=== PATIENT | female | born 1995 | race Caucasian/White ===

== ENCOUNTER 2017-05-23 13:17 | Emergency (ER) | payer OTHER ==
[~2017-05-23] VITALS: Wt 97.1 kg
[~2017-05-23 13:17] MED LIST: AMOXIL500 MG PO; MOTRIN800 MG PO; PRENATAL1 TA7 PO
== END 2017-05-23 14:22 | disposition home or self-care (01) ==
LOC: ED 13:17
DX: H60.93 Unspecified otitis externa, bilateral (principal); F17.200 Nicotine dependence, unspecified, uncomplicated; Z79.899 Other long term (current) drug therapy

== ENCOUNTER → 2018-08-03 | Outpatient (CLI) | payer OTHER | END | disposition home or self-care (01) | LOC: LAB 10:11 | DX: Z34.81 Encounter for supervision of other normal pregnancy, first trimester (principal); Z3A.12 12 weeks gestation of pregnancy ==

== ENCOUNTER → 2018-12-01 | Outpatient (CLI) | payer OTHER | END | disposition home or self-care (01) | LOC: US 14:00 | DX: Z34.93 Encounter for supervision of normal pregnancy, unspecified, third trimester (principal); Z3A.31 31 weeks gestation of pregnancy ==

== ENCOUNTER 2019-06-23 06:58 | Emergency (ER) | payer OTHER ==
[~2019-06-23] VITALS: Ht 160 cm; Wt 90.7 kg
[2019-06-23] MEDS ORDERED: AMOXICILLIN500 M2 PO (07:29)
[2019-06-23] MEDS ORDERED: CLINDAMYCIN HC300 MG PO (07:29)
[2019-06-23] MEDS ORDERED: Motrin,Rufen800 MG PO (07:30)
== END 2019-06-23 07:29 | disposition home or self-care (01) ==
LOC: ED 06:58
DX: K08.89 Other specified disorders of teeth and supporting structures (principal); Z79.899 Other long term (current) drug therapy

== ENCOUNTER 2021-11-04 14:32 | Inpatient (IN) | payer OTHER ==
[~2021-11-04] VITALS: Ht 160 cm; Wt 102.0 kg
[~2021-11-04 14:32] MED LIST changes: +AMOXICILLIN500 M2 PO; +CLINDAMYCIN HC300 MG PO; +Motrin,Rufen800 MG PO
[2021-11-04 14:57] VITALS: BP 135/73
[2021-11-04 15:25] LABS: BASO # 0.1 10*3/uL (0.0-0.1); BASO % 0.3 % (0.0-1.0); EOS % 0.1 % (1.0-4.0); HEMATOCRIT 44.2 % (37.0-47.0); LYMPH # 2.2 10*3/uL (1.3-4.4); LYMPH % 10.8 % (27.0-41.0); MEAN CELL VOLUME 95.9 fl (81.0-99.0); MEAN CORPUSCULAR HGB 31.7 pg (27.0-31.0); MEAN PLATELET VOLUME 9.2 fl (9.6-12.3); MONO # 0.5 10*3/uL (0.1-1.0); MONO % 2.6 % (3.0-9.0); NEUT # 17.5 10*3/uL (2.3-7.9); NEUT % 85.6 % (47.0-73.0); PLATELET COUNT AUTOMATED 322 10*3/uL (130-400); RED BLOOD COUNT 4.61 10*6/uL (4.10-5.10); RED CELL DISTRI WIDTH 12.6 % (0-14.5); WHITE BLOOD COUNT 20.4 10*3/uL (4.8-10.8)
[2021-11-04 15:47] LABS: ALBUMIN 4.3 gm/dl (3.1-4.5); ALKALINE PHOSPHATASE 90 U/L (45-117); BUN 9 mg/dl (7-24); CHLORIDE 107 mmol/L (98-107); CREATININE 0.77 mg/dL (0.55-1.02); LIPASE 67 U/L (73-393); POTASSIUM 3.9 mmol/L (3.5-5.1); SGOT/AST 21 IU/L (3-35); SGPT/ALT 69 U/L (12-78); SODIUM 136 mmol/L (136-145); TOTAL PROTEIN 8.2 gm/dL (6.4-8.2)
[2021-11-04 16:30] LABS: BILIRUBIN Negative (Negative); BLOOD Negative (Negative); CLARITY Turbid (Clear); COLOR Yellow (Yellow); GLUCOSE Negative (Negative); KETONE Negative (Negative); LEUKO ESTERASE Negative (Negative); NITRITE Negative (Negative); SPECIFIC GRAVITY >= 1.030 (1.001-1.030)
[2021-11-04 16:46] LABS: BACTERIA 4+; RBC 0-2 rbc/hpf (0-2)
[2021-11-04 16:47] LABS: EPITHELIAL CELLS 0-2; WBC 0-2 wbc/hpf (0-5)
[2021-11-04 21:15] VITALS: BP 118/59
[2021-11-05] VITALS: BP 119/65
[2021-11-05 02:40] VITALS: BP 137/82
[2021-11-05 06:20] LABS: BASO % 0.3 % (0.0-1.0); EOS # 0.3 10*3/uL (0.0-0.4); EOS % 2.1 % (1.0-4.0); HEMATOCRIT 41.4 % (37.0-47.0); LYMPH # 4.2 10*3/uL (1.3-4.4); LYMPH % 26.6 % (27.0-41.0); MEAN CELL VOLUME 96.5 fl (81.0-99.0); MEAN CORPUSCULAR HGB 31.7 pg (27.0-31.0); MEAN CORPUSCULAR HGB CONC 32.9 g/dl (33.0-37.0); MEAN PLATELET VOLUME 9.6 fl (9.6-12.3); MONO # 0.8 10*3/uL (0.1-1.0); MONO % 4.8 % (3.0-9.0); NEUT # 10.5 10*3/uL (2.3-7.9); NEUT % 65.7 % (47.0-73.0); PLATELET COUNT AUTOMATED 288 10*3/uL (130-400); RED BLOOD COUNT 4.29 10*6/uL (4.10-5.10); RED CELL DISTRI WIDTH 12.9 % (0-14.5)
[2021-11-05 06:31] LABS: CHLORIDE 107 mmol/L (98-107); POTASSIUM 3.2 mmol/L (3.5-5.1); SODIUM 137 mmol/L (136-145)
[2021-11-05 06:46] LABS: ALBUMIN 3.5 gm/dl (3.1-4.5); ALKALINE PHOSPHATASE 79 U/L (45-117); BUN 9 mg/dl (7-24); CHOLESTEROL 108 mg/dL (<200); CREATININE 0.81 mg/dL (0.55-1.02); FREE T4 0.86 ng/dl (0.76-1.46); LDL CHOLESTEROL 48 mg/dL (9-159); SGOT/AST 17 IU/L (3-35); SGPT/ALT 51 U/L (12-78); THYROID STIM HORMONE (HS) 0.744 uIU/ml (0.358-4.75); TOTAL PROTEIN 7.1 gm/dL (6.4-8.2); TRIGLYCERIDES 146 mg/dl (<150)
[2021-11-05 08:00] VITALS: BP 119/66
[2021-11-05 12:02] VITALS: BP 125/64
[2021-11-05 16:00] VITALS: BP 139/78
[2021-11-05 20:00] VITALS: BP 111/55
[2021-11-06] VITALS (8 sets, daily range): BP systolic 104–147; BP diastolic 58–84
[2021-11-06 06:23] LABS: BASO # 0.1 10*3/uL (0.0-0.1); BASO % 0.5 % (0.0-1.0); EOS # 0.6 10*3/uL (0.0-0.4); EOS % 5.8 % (1.0-4.0); HEMATOCRIT 38.5 % (37.0-47.0); LYMPH # 3.9 10*3/uL (1.3-4.4); LYMPH % 37.6 % (27.0-41.0); MEAN CORPUSCULAR HGB 31.6 pg (27.0-31.0); MEAN CORPUSCULAR HGB CONC 32.2 g/dl (33.0-37.0); MEAN PLATELET VOLUME 9.6 fl (9.6-12.3); MONO # 0.5 10*3/uL (0.1-1.0); NEUT # 5.2 10*3/uL (2.3-7.9); NEUT % 50.5 % (47.0-73.0); PLATELET COUNT AUTOMATED 248 10*3/uL (130-400); RED BLOOD COUNT 3.93 10*6/uL (4.10-5.10); RED CELL DISTRI WIDTH 12.8 % (0-14.5); WHITE BLOOD COUNT 10.3 10*3/uL (4.8-10.8)
[2021-11-06 06:26] LABS: BUN 12 mg/dl (7-24); CHLORIDE 111 mmol/L (98-107); POTASSIUM 3.7 mmol/L (3.5-5.1); SODIUM 139 mmol/L (136-145)
[2021-11-06 06:29] LABS: CREATININE 0.71 mg/dL (0.55-1.02)
[2021-11-06] MEDS ORDERED: AUGMENTIN 875875 MG PO (12:15)
[2021-11-06] MEDS ORDERED: COL-RITE100 M1 PO (12:15)
[2021-11-06] MEDS ORDERED: ZOFRAN4 MG PO (12:15)
== END 2021-11-06 15:00 | disposition home or self-care (01) | DRG 263 ==
LOC: ED 14:32 → 4E 18:19 → EDHOLD 18:19 → 4E 20:03
PROVIDERS: Internal Medicine; Nurse Practitioner Family; ADMIT Student in an Organized Health Care Education/Training Program; ATTEND Student in an Organized Health Care Education/Training Program
PROC: 0FT44ZZ Resection of Gallbladder, Percutaneous Endoscopic Approach (ICD-10-PCS; principal; 2021-11-06)
PROC: 3E0T3BZ Introduction of Anesthetic Agent into Peripheral Nerves and Plexi, Percutaneous Approach (ICD-10-PCS; 2021-11-06)
PROC: 3E0T33Z Introduction of Anti-inflammatory into Peripheral Nerves and Plexi, Percutaneous Approach (ICD-10-PCS; 2021-11-06)
DX: K80.00 Calculus of gallbladder with acute cholecystitis without obstruction (principal); K76.0 Fatty (change of) liver, not elsewhere classified; K42.0 Umbilical hernia with obstruction, without gangrene; K20.90 Esophagitis, unspecified without bleeding; E66.9 Obesity, unspecified; Z20.822 Contact with and (suspected) exposure to COVID-19; R73.9 Hyperglycemia, unspecified; R16.2 Hepatomegaly with splenomegaly, not elsewhere classified; F17.210 Nicotine dependence, cigarettes, uncomplicated; Z71.6 Tobacco abuse counseling; Z82.49 Family history of ischemic heart disease and other diseases of the circulatory system; Z83.3 Family history of diabetes mellitus; Z68.39 Body mass index [BMI] 39.0-39.9, adult

== ENCOUNTER 2022-03-30 16:23 | Emergency (ER) | payer OTHER ==
[~2022-03-30] VITALS: Wt 99.8 kg
[~2022-03-30 16:23] MED LIST changes: +AUGMENTIN 875875 MG PO; +COL-RITE100 M1 PO; +ZOFRAN4 MG PO
[2022-03-30] MEDS ORDERED: AMOXICILLIN500 M2 PO (17:33)
== END 2022-03-30 17:22 | disposition home or self-care (01) ==
LOC: ED 16:23
DX: H66.91 Otitis media, unspecified, right ear (principal); F17.210 Nicotine dependence, cigarettes, uncomplicated

== ENCOUNTER 2024-01-18 17:29 | Emergency (ER) | payer OTHER ==
[~2024-01-18] VITALS: Ht 160 cm; Wt 102.5 kg
[2024-01-18 18:24] LABS: BASO % 0.4 % (0.0-1.0); EOS # 0.5 10*3/uL (0.0-0.4); EOS % 7.7 % (1.0-4.0); HEMATOCRIT 43.7 % (37.0-47.0); LYMPH # 1.8 10*3/uL (1.3-4.4); LYMPH % 26.1 % (27.0-41.0); MEAN CELL VOLUME 96.3 fl (81.0-99.0); MEAN CORPUSCULAR HGB 31.3 pg (27.0-31.0); MEAN CORPUSCULAR HGB CONC 32.5 g/dl (33.0-37.0); MEAN PLATELET VOLUME 9.1 fl (9.6-12.3); MONO # 0.4 10*3/uL (0.1-1.0); MONO % 5.8 % (3.0-9.0); NEUT # 4.2 10*3/uL (2.3-7.9); NEUT % 59.6 % (47.0-73.0); PLATELET COUNT AUTOMATED 220 10*3/uL (130-400); RED BLOOD COUNT 4.54 10*6/uL (4.10-5.10); RED CELL DISTRI WIDTH 12.8 % (0-14.5)
[2024-01-18 18:55] LABS: BUN 8 mg/dl (9-23); CHLORIDE 108 mmol/L (98-107); POTASSIUM 3.6 mmol/L (3.4-5.1)
== END 2024-01-18 20:25 | disposition home or self-care (01) ==
LOC: ED 17:29
PROVIDERS: Nurse Practitioner
DX: O20.9 Hemorrhage in early pregnancy, unspecified (principal); O99.331 Smoking (tobacco) complicating pregnancy, first trimester; F17.210 Nicotine dependence, cigarettes, uncomplicated; Z79.899 Other long term (current) drug therapy; Z79.2 Long term (current) use of antibiotics; Z3A.01 Less than 8 weeks gestation of pregnancy

== ENCOUNTER → 2024-01-23 | Outpatient (CLI) | payer MEDICAID | END | disposition home or self-care (01) | LOC: US 14:18 | PROVIDERS: ATTEND Obstetrics & Gynecology | DX: O20.0 Threatened abortion (principal); Z3A.00 Weeks of gestation of pregnancy not specified ==

== ENCOUNTER → 2024-01-28 | Outpatient (CLI) | payer MEDICAID | END | disposition home or self-care (01) | LOC: US 10:27 | PROVIDERS: ATTEND Obstetrics & Gynecology | DX: O20.0 Threatened abortion (principal); Z3A.01 Less than 8 weeks gestation of pregnancy ==

== ENCOUNTER → 2024-06-24 | Outpatient (CLI) | payer MEDICAID | END | disposition home or self-care (01) | LOC: US 09:19 | PROVIDERS: ATTEND Nurse Practitioner Women's Health | DX: O34.80 Maternal care for other abnormalities of pelvic organs, unspecified trimester (principal); N83.292 Other ovarian cyst, left side; R79.89 Other specified abnormal findings of blood chemistry; Z3A.00 Weeks of gestation of pregnancy not specified; Z37.0 Single live birth ==

== ENCOUNTER 2024-12-16 08:21 | Emergency (ER) | payer MEDICAID ==
[~2024-12-16] VITALS: Wt 98.0 kg
[2024-12-16] MEDS ORDERED: Lidocaine Hydrochloride 15 ML UDC PO ONE (09:10)
[2024-12-16] MEDS ORDERED: Lidocaine Hydrochloride 10 ML SYR UR ONE (09:15)
[2024-12-16] MEDS ORDERED: BENZOCAINE 20% 11.9 GM GEL T ONE (09:15)
[2024-12-16] MEDS ORDERED: PENICILLIN VK500 MG PO (09:20)
== END 2024-12-16 09:30 | disposition home or self-care (01) ==
LOC: ED 08:21
DX: K04.7 Periapical abscess without sinus (principal); Z79.899 Other long term (current) drug therapy